=== PATIENT | female | born 1955 | race Caucasian/White ===

== ENCOUNTER 2016-07-29 09:58 | Emergency (ER) | payer OTHER ==
[~2016-07-29] VITALS: Ht 149.9 cm; Wt 63.6 kg
[2016-07-29] MEDS ORDERED: KETOROLAC TROMETHAMINE 60 MG/2 ML VIAL IM ONE (11:00)
[2016-07-29 12:34] VITALS: BP 118/73
== END 2016-07-29 12:42 | disposition home or self-care (01) ==
LOC: EMS 10:00
DX: S83.91XA Sprain of unspecified site of right knee, initial encounter (principal); X58.XXXA Exposure to other specified factors, initial encounter; Y93.89 Activity, other specified; Y92.89 Other specified places as the place of occurrence of the external cause; Y99.8 Other external cause status
CPT/HCPCS: 73564; 96372; 99284; J1885